=== PATIENT | male | born 1975 | race Caucasian/White ===

== ENCOUNTER 2018-07-17 21:19 | Emergency (ER) | payer OTHER ==
[2018-07-17] MEDS: DIPHENHYDRAMINE 50 MG INJ IM (21:37)
[2018-07-17] MEDS: METHYLPREDNISOLONE 125 MG INJ IM (21:37)
== END 2018-07-17 21:51 | disposition home or self-care (01) ==
LOC: FTE 21:19
DX: R21 Rash and other nonspecific skin eruption (principal); I10 Essential (primary) hypertension
CPT/HCPCS: 96372; 99284-25

== ENCOUNTER 2018-10-16 01:44 | Observation (INO) | payer OTHER ==
[2018-10-16] MEDS ORDERED: HYDROCODONE/APAP (5/325) TAB PO (03:00)
[2018-10-16] MEDS ORDERED: ONDANSETRON 4 MG INJ IV (03:00)
[2018-10-16] MEDS ORDERED: NACL 0.9% 3 ML SYG IV (03:00)
[2018-10-16] MEDS ORDERED: NITROGLYCERIN (SL) 0.4 MG TAB SL (03:00)
[2018-10-16] MEDS ORDERED: ALBUTEROL/IPRATROPIUM (NEB) 3 ML AMP HHN (03:00)
[2018-10-16] MEDS: ACETAMINOPHEN 325 MG TAB PO (03:14)
[2018-10-16] MEDS: HYDROCODONE/APAP (5/325) TAB PO (06:13)
[2018-10-16 08:23] LABS: ADD MAN DIFF? NO
[2018-10-16 08:31] LABS: WHITE BLOOD COUNT 7.5 10^3/ul (4.8-10.8)
[2018-10-16 08:31] LABS: BASOPHILS % 0.3 % (0.0-2.0); EOSINOPHILS # 0.1 10^3/ul (0.0-0.5); EOSINOPHILS % 0.9 % (0.0-7.0); HEMATOCRIT 40.9 % (42.0-52.0); HEMOGLOBIN 13.7 g/dl (14.0-18.0); LYMPHOCYTES % 26.9 % (15.0-51.0); MEAN CORPUSCULAR HEMOGLOBIN 29.5 pg (29.0-33.0); MEAN CORPUSCULAR HGB CONC 33.5 g/dl (32.0-37.0); MEAN CORPUSCULAR VOLUME 88.1 fl (82.0-101.0); MONOCYTE # 0.8 10^3/ul (0.3-0.9); MONOCYTES % 10.7 % (0.0-11.0); NEUTROPHIL # 4.5 10^3/ul (1.6-7.5); NEUTROPHILS % 60.7 % (39.0-77.0); PLATELET COUNT 194 10^3/UL (140-415); RED BLOOD COUNT 4.64 10^6/ul (4.70-6.10); RED CELL DISTRIBUTION WIDTH 13.3 % (11.5-14.5)
[2018-10-16 08:44] LABS: HEMOGLOBIN A1C 5.3 % (0-5.9)
[2018-10-16] MEDS: LORATADINE 10 MG TAB PO (08:54)
[2018-10-16] MEDS: ASPIRIN 81 MG TAB PO (08:54)
[2018-10-16] MEDS: FENOFIBRATE 48 MG TAB PO (08:54)
[2018-10-16] MEDS: LISINOPRIL 20 MG TAB PO (08:54)
[2018-10-16] MEDS: ENOXAPARIN 40 MG/0.4 ML SYG SC (08:59)
[2018-10-16] MEDS ORDERED: NON-FORMULARY/PATIENT OWN MED (Fexofenadine Hcl* (Allegra*) 180 MG) PO (09:00)
[2018-10-16 09:01] LABS: ALANINE AMINOTRANSFERASE 28 IU/L (13-69); ALBUMIN 4.1 g/dl (3.3-4.9); ALBUMIN/GLOBULIN RATIO 1.57; ALKALINE PHOSPHATASE 61 IU/L (42-121); ANION GAP 10 (5-13); ASPARTATE AMINO TRANSFERASE 20 IU/L (15-46); BILIRUBIN,INDIRECT 0.4 mg/dl (0-1.1); BILIRUBIN,TOTAL 0.4 mg/dl (0.2-1.3); BLOOD UREA NITROGEN 16 mg/dl (7-20); CALCIUM 9.5 mg/dl (8.4-10.2); CARBON DIOXIDE 25 mmol/L (21-31); CHLORIDE 105 mmol/L (97-110); CHOLESTEROL 191 mg/dl (100-200); CREATINE KINASE 129 IU/L (23-200); CREATININE 0.81 mg/dl (0.61-1.24); Estimated GFR > 60 mL/min (>60); GLUCOSE 91 mg/dl (70-220); HDL CHOLESTEROL 27 mg/dl (27-67); LDL CHOLESTEROL,CALCULATED 97 mg/dl; MAGNESIUM 2.1 mg/dl (1.7-2.5); SODIUM 140 mmol/L (135-144); TOTAL PROTEIN 6.7 g/dl (6.1-8.1); TRIGLYCERIDES 333 mg/dl (0-149)
[2018-10-16 09:06] LABS: CK INDEX 0.8; CK-MB 1.02 ng/ml (0.0-2.4); TROPONIN-I < 0.012 ng/ml (0.000-0.120)
[2018-10-16 12:16] LABS: CREATINE KINASE 120 IU/L (23-200)
[2018-10-16 12:27] LABS: CK INDEX 0.7; CK-MB 0.84 ng/ml (0.0-2.4); TROPONIN-I < 0.012 ng/ml (0.000-0.120)
[2018-10-17] MEDS: HYDROCODONE/APAP (5/325) TAB PO ×2 (00:48→12:03)
[2018-10-17 06:23] LABS: ADD MAN DIFF? NO
[2018-10-17 06:35] LABS: BASOPHILS % 0.3 % (0.0-2.0); EOSINOPHILS # 0.1 10^3/ul (0.0-0.5); EOSINOPHILS % 1.5 % (0.0-7.0); HEMATOCRIT 43.3 % (42.0-52.0); HEMOGLOBIN 14.5 g/dl (14.0-18.0); LYMPHOCYTES # 2.7 10^3/ul (0.8-2.9); LYMPHOCYTES % 35.4 % (15.0-51.0); MEAN CORPUSCULAR HEMOGLOBIN 29.6 pg (29.0-33.0); MEAN CORPUSCULAR HGB CONC 33.5 g/dl (32.0-37.0); MEAN CORPUSCULAR VOLUME 88.4 fl (82.0-101.0); MEAN PLATELET VOLUME 10.8 fl (7.4-10.4); MONOCYTE # 0.8 10^3/ul (0.3-0.9); MONOCYTES % 9.9 % (0.0-11.0); NEUTROPHILS % 52.4 % (39.0-77.0); PLATELET COUNT 193 10^3/UL (140-415); RED CELL DISTRIBUTION WIDTH 13.4 % (11.5-14.5)
[2018-10-17 06:35] LABS: WHITE BLOOD COUNT 7.6 10^3/ul (4.8-10.8)
[2018-10-17 07:00] LABS: ANION GAP 8 (5-13); BLOOD UREA NITROGEN 13 mg/dl (7-20); CALCIUM 9.2 mg/dl (8.4-10.2); CARBON DIOXIDE 23 mmol/L (21-31); CHLORIDE 110 mmol/L (97-110); CREATININE 0.75 mg/dl (0.61-1.24); Estimated GFR > 60 mL/min (>60); GLUCOSE 97 mg/dl (70-220); PHOSPHORUS 3.8 mg/dl (2.5-4.9); POTASSIUM 4.3 mmol/L (3.5-5.1); SODIUM 141 mmol/L (135-144)
[2018-10-17] MEDS: FENOFIBRATE 48 MG TAB PO (08:42)
[2018-10-17] MEDS: LISINOPRIL 20 MG TAB PO (08:43)
[2018-10-17] MEDS: LORATADINE 10 MG TAB PO (08:43)
[2018-10-17] MEDS: ASPIRIN 81 MG TAB PO (08:43)
[2018-10-17] MEDS: ENOXAPARIN 40 MG/0.4 ML SYG SC (08:47)
[2018-10-17 12:01] LABS: TROPONIN-I < 0.012 ng/ml (0.000-0.120)
[2018-10-17] MEDS: ASPIRIN (EC) 81 MG TAB PO (15:30)
[2018-10-17] MEDS ORDERED: METOPROLOL 25 MG TAB PO (21:00)
== END 2018-10-17 17:16 | disposition home or self-care (01) ==
LOC: 6WM 01:44 → TEL 04:27
DX: R07.9 Chest pain, unspecified (principal); I10 Essential (primary) hypertension; E66.9 Obesity, unspecified; Z68.38 Body mass index [BMI] 38.0-38.9, adult; R51 Headache; L30.9 Dermatitis, unspecified; L40.9 Psoriasis, unspecified
CPT/HCPCS: 80048; 80053; 80061; 82550; 82553; 83036; 83735; 84100; 84443; 84484; 85025; 93005; 93306; 99217; G0378